=== PATIENT | female | born 1945 | race Caucasian/White ===

== ENCOUNTER 2024-06-21 20:02 | Inpatient (IN) ==
[2024-06-21] MEDS ORDERED: IOPAMIDOL 100 ML BOTTLE IV ONE (20:03)
[2024-06-21 21:04] LABS: Basophils # (Auto) 0.01 K/mcL (0.00-0.30); Basophils % (Auto) 0.2 % (0.0-2.0); Eosinophils # (Auto) 0 K/mcL (0.00-0.70); Eosinophils % (Auto) 0 % (0.0-7.0); Hematocrit 44.5 % (34.1-44.9); Hemoglobin 14.7 g/dL (11.2-15.7); Lymphocytes # (Auto) 0.27 K/mcL (1.50-4.80); Lymphocytes % (Auto) 5.7 % (15.5-49.0); Mean Cell Volume 96.3 fL (80.0-100.0); Mean Platelet Volume 9.9 fL (8.8-12.5); Monocytes # (Auto) 0.02 K/mcL (0.10-0.90); Monocytes % (Auto) 0.4 % (1.0-12.0); Neutrophils % (Auto) 92.9 % (38.0-78.0); Platelet Count 133 K/mcL (140-440); RBC 4.62 M/mcL (3.59-5.38); Red Cell Distribution Width 14.4 % (11.5-14.5); WBC 4.7 K/mcL (4.5-11.0)
[2024-06-21 21:05] LABS: INR 1.1 (0.9-1.1); Prothrombin Time 14.3 sec (11.9-14.5)
[2024-06-21 21:16] LABS: ALT/SGPT 31 U/L (<40); AST/SGOT 38 U/L (<32); Albumin 3.7 gm/dL (3.2-5.2); Albumin/Globulin Ratio 1.7 (1.0-2.3); Alkaline Phosphatase 93 U/L (39-117); Bilirubin,Total 0.6 mg/dL (0.1-1.0); Blood Urea Nitrogen 28 mg/dL (8-23); Calcium 8.9 mg/dL (8.6-10.4); Carbon Dioxide 20 mmol/L (22-30); Chloride 97 mmol/L (96-108); Globulin 2.2 gm/dL (2.2-3.7); Glomerular Filtration Rate 43; Glucose 165 mg/dL (70-105); Potassium 2.8 mmol/L (3.3-5.1); Sodium 135 mmol/L (133-145)
[2024-06-21] MEDS: cefTRIAXone 2 GM in DEXTROSE 5% IN WATER 50 ML IV ONE (21:35)
[2024-06-21] MEDS: NALOXONE HCL 0.4 MG/ML VIAL IV ONE (21:35)
[2024-06-21] MEDS: MAGNESIUM SULFATE 2 GM/50 ML BAG IV ONE (21:35)
[2024-06-21] MEDS: 0.9 % SODIUM CHLORIDE 1,780 ML IV ONE (21:35)
[2024-06-21] MEDS: POTASSIUM CHLORIDE 20 MEQ TABLET PO ONE (22:08)
[2024-06-21] MEDS: POTASSIUM CHLORIDE 20 MEQ in DEXTROSE 5% IN WATER 250 ML IV ONE (22:20)
[2024-06-21] MEDS: ACETAMINOPHEN 1,000 MG/100 ML BAG IV ONE (22:20)
[2024-06-21] MEDS: KETOROLAC 15 MG/ML VIAL IV ONE (22:50)
[2024-06-21] MEDS ORDERED: GLYCOPYRROLATE 0.2 MG/ML VIAL IV ONE (23:39)
[2024-06-21] MEDS ORDERED: LIDOCAINE 2% PF 5 ML VIAL ONE (23:39)
[2024-06-21] MEDS ORDERED: ONDANSETRON 4 MG/2 ML VIAL ONE (23:39)
[2024-06-21] MEDS ORDERED: KETAMINE 50 MG/ML Syringe IV ONE (23:39)
[2024-06-21] MEDS ORDERED: DEXAMETHASONE 10 MG/ML VIAL ONE (23:39)
[2024-06-21] MEDS ORDERED: METOCLOPRAMIDE 10 MG/2 ML VIAL ONE (23:39)
[2024-06-21] MEDS ORDERED: ePHEDrine 50 MG/5 ML SYRINGE (ANEST) IV ONE (23:39)
[2024-06-21] MEDS ORDERED: PHENYLephrine 1 MG/10 ML SYRINGE (ANEST) ONE (23:39)
[2024-06-21] MEDS ORDERED: PROPOFOL 200 MG/20 ML VIAL IV ONE (23:39)
[2024-06-21] MEDS ORDERED: FAMOTIDINE/PF 20 MG/2 ML VIAL IV ONE (23:40)
[2024-06-21 23:49] LABS: Band Neutrophils % 32 % (0-10); Lymphocytes % 4 % (15-49); Metamyelocytes % 1 %; Microcytosis 1+ (None Seen); Monocytes % (Manual) 1 % (1-12); Platelet Estimate DECREASED (Normal); RBC Morphology ABNORMAL (Normal); Reactive Lymphocytes 1 % (0-2); Segmented Neutrophils % 61 % (38-78)
[2024-06-21] MEDS: PIPERACILLIN SODIUM/TAZOBACTAM 3.375 GM in DEXTROSE 5% IN WATER 50 ML IV ONE (23:56)
[2024-06-22] MEDS: IOVERSOL 50 ML VIAL IV ONE (00:12)
[2024-06-22] MEDS: LIDOCAINE 2% URO-JET 10 ML JEL.PF.APP UR ONE (00:16)
[2024-06-22] MEDS ORDERED: PHENYLephrine 1 MG/10 ML SYRINGE (ANEST) ONE (00:29)
[2024-06-22] MEDS ORDERED: ePHEDrine 50 MG/5 ML SYRINGE (ANEST) IV ONE (00:29)
[2024-06-22] MEDS ORDERED: HYDROmorphone 0.5 MG/0.5 ML SYRINGE IV PRN (00:34)
[2024-06-22] MEDS ORDERED: NALOXONE HCL 0.4 MG/ML VIAL IV PRN (00:34)
[2024-06-22] MEDS ORDERED: fentaNYL 100 MCG/2 ML VIAL IV PRN (00:34)
[2024-06-22] MEDS ORDERED: ONDANSETRON 4 MG/2 ML VIAL IV PRN (00:34)
[2024-06-22] MEDS ORDERED: IPRATROPIUM/ALBUTEROL 3 ML AMPUL.NEB NEB PRN ×2 (00:34→01:07)
[2024-06-22] MEDS ORDERED: MAGNESIUM SULFATE 2 GM/50 ML BAG IV PRN (01:07)
[2024-06-22] MEDS ORDERED: POTASSIUM CHLORIDE 20 MEQ TABLET PO PRN ×2 (01:07)
[2024-06-22] MEDS ORDERED: POTASSIUM CHLORIDE 40 MEQ in DEXTROSE 5% IN WATER 500 ML IV PRN (01:07)
[2024-06-22] MEDS ORDERED: SENNOSIDES 1 TABLET PO PRN (01:07)
[2024-06-22] MEDS ORDERED: POLYETHYLENE GLYCOL 3350 17 GM PACKET PO PRN (01:07)
[2024-06-22] MEDS: PIPERACILLIN SODIUM/TAZOBACTAM 3.375 GM VIAL IV ONE (02:31)
[2024-06-22] MEDS: POTASSIUM CHLORIDE 20 MEQ in DEXTROSE 5% IN WATER 250 ML IV ONE (03:10)
[2024-06-22] MEDS: PIPERACILLIN SODIUM/TAZOBACTAM 3.375 GM in DEXTROSE 5% IN WATER 100 ML IV SCH ×2 (03:17→11:00)
[2024-06-22] MEDS: LACTATED RINGERS 1,000 ML IV SCH (03:24)
[2024-06-22] MEDS: POTASSIUM CHLORIDE 20 MEQ/10 ML VIAL IV ONE (03:29)
[2024-06-22] MEDS: NOREPINEPHRINE 250 ML IV ONE (03:47)
[2024-06-22 04:51] LABS: Appearance,Urine HAZY (Clear); Bilirubin,Urine Negative (Negative); Color,Urine YELLOW; Glucose,Urine (UA) Negative (Negative); Ketones,Urine Negative (Negative); Leukocyte Esterase,Urine 250 /uL (Negative); Mucus,Urine FEW /hpf; Nitrate,Urine Negative (Negative); Protein,Urine 100 mg/dL (Negative); Specific Gravity,Urine 1.038 (1.000-1.035); Urine Blood >=1.0 mg/dL (Negative); Urine RBC > 182 /hpf (0-1); Urine Squamous Epithelial Cell 1 /hpf (0-4); Urine WBC 64 /hpf (0-4); Urobilinogen,Urine Negative
[2024-06-22] MEDS: 0.9 % SODIUM CHLORIDE 250 ML IV SCH (05:15)
[2024-06-22] MEDS: NOREPINEPHRINE BITARTRATE 8 MG in 0.9 % SODIUM CHLORIDE 242 ML IV PRN (05:19)
[2024-06-22] MEDS: 0.9 % SODIUM CHLORIDE 10 ML SYRINGE IV SCH (05:36)
[2024-06-22 05:53] LABS: Hematocrit 41.4 % (34.1-44.9); Hemoglobin 13.5 g/dL (11.2-15.7); Mean Cell Volume 97.9 fL (80.0-100.0); Mean Corpuscular HGB Conc 32.6 g/dL (31.0-36.0); Mean Platelet Volume 10.5 fL (8.8-12.5); Platelet Count 134 K/mcL (140-440); RBC 4.23 M/mcL (3.59-5.38); Red Cell Distribution Width 14.8 % (11.5-14.5); WBC 22.6 K/mcL (4.5-11.0)
[2024-06-22 06:24] LABS: ALT/SGPT 32 U/L (<40); AST/SGOT 34 U/L (<32); Albumin 3.6 gm/dL (3.2-5.2); Albumin/Globulin Ratio 1.7 (1.0-2.3); Alkaline Phosphatase 60 U/L (39-117); Bilirubin,Direct 0.3 mg/dL (<0.3); Bilirubin,Total 0.5 mg/dL (0.1-1.0); Blood Urea Nitrogen 28 mg/dL (8-23); Calcium 8.6 mg/dL (8.6-10.4); Carbon Dioxide 20 mmol/L (22-30); Chloride 105 mmol/L (96-108); Globulin 2.1 gm/dL (2.2-3.7); Glomerular Filtration Rate 35; Glucose 237 mg/dL (70-105); Lactate Dehydrogenase 221 U/L (135-225); Phosphorous 3.2 mg/dL (2.5-4.5); Potassium 3.5 mmol/L (3.3-5.1); Sodium 141 mmol/L (133-145); Triglycerides 194 mg/dL (<150); Uric Acid 9.4 mg/dL (2.5-8.0)
[2024-06-22 06:56] LABS: Anisocytosis 1+ (None Seen); Band Neutrophils % 5 % (0-10); Lymphocytes % 4 % (15-49); Monocytes % (Manual) 6 % (1-12); Myelocytes % 2 %; Platelet Estimate NORMAL (Normal); RBC Morphology ABNORMAL (Normal); Segmented Neutrophils % 83 % (38-78)
[2024-06-22] MEDS ORDERED: NOREPINEPHRINE 250 ML IV PRN (07:36)
[2024-06-22] MEDS: 0.9 % SODIUM CHLORIDE 1,000 ML IV SCH ×2 (08:00→09:30)
[2024-06-22] MEDS: DOCUSATE SODIUM 100 MG CAPSULE PO SCH (08:00)
[2024-06-22] MEDS: ENOXAPARIN 40 MG/0.4 ML SYRINGE SQ SCH (08:09)
[2024-06-22] MEDS: FAMOTIDINE/PF 20 MG/2 ML VIAL IV SCH (08:09)
[2024-06-22] MEDS ORDERED: HYDROcodone/APAP (PP) 5/325MG TABLET (#4) PO PRN (08:44)
[2024-06-22] MEDS: SERTRALINE 100 MG TABLET PO SCH (10:10)
[2024-06-22] MEDS: ATORVASTATIN 20 MG TABLET PO SCH (10:11)
[2024-06-22] MEDS: MEMANTINE 10 MG TABLET PO SCH (10:11)
[2024-06-22] MEDS: LEVOTHYROXINE 125 MCG TABLET PO SCH (10:11)
[2024-06-22] MEDS: ACETAMINOPHEN 325 MG TABLET PO PRN (16:38)
[2024-06-22] MEDS: PRAZOSIN 1 MG CAPSULE PO SCH (20:28)
[2024-06-22] MEDS: morphine 4 MG/ML VIAL IV PRN (23:26)
[2024-06-23 05:10] LABS: Basophils # (Auto) 0.01 K/mcL (0.00-0.30); Basophils % (Auto) 0.1 % (0.0-2.0); Eosinophils # (Auto) 0.03 K/mcL (0.00-0.70); Eosinophils % (Auto) 0.2 % (0.0-7.0); Hematocrit 36.9 % (34.1-44.9); Hemoglobin 11.9 g/dL (11.2-15.7); Lymphocytes # (Auto) 1.62 K/mcL (1.50-4.80); Lymphocytes % (Auto) 9.1 % (15.5-49.0); Mean Cell Volume 99.5 fL (80.0-100.0); Mean Corpuscular HGB Conc 32.2 g/dL (31.0-36.0); Mean Platelet Volume 10.8 fL (8.8-12.5); Monocytes # (Auto) 0.71 K/mcL (0.10-0.90); Neutrophils % (Auto) 79.6 % (38.0-78.0); Platelet Count 113 K/mcL (140-440); RBC 3.71 M/mcL (3.59-5.38); Red Cell Distribution Width 14.9 % (11.5-14.5); WBC 17.9 K/mcL (4.5-11.0)
[2024-06-23 05:46] LABS: ALT/SGPT 27 U/L (<40); AST/SGOT 22 U/L (<32); Albumin 3.3 gm/dL (3.2-5.2); Albumin/Globulin Ratio 1.5 (1.0-2.3); Alkaline Phosphatase 57 U/L (39-117); Bilirubin,Direct 0.3 mg/dL (<0.3); Bilirubin,Total 0.6 mg/dL (0.1-1.0); Blood Urea Nitrogen 22 mg/dL (8-23); Calcium 8.3 mg/dL (8.6-10.4); Carbon Dioxide 22 mmol/L (22-30); Chloride 108 mmol/L (96-108); Globulin 2.2 gm/dL (2.2-3.7); Glomerular Filtration Rate 47; Glucose 126 mg/dL (70-105); Lactate Dehydrogenase 184 U/L (135-225); Phosphorous 2.3 mg/dL (2.5-4.5); Potassium 3.3 mmol/L (3.3-5.1); Sodium 143 mmol/L (133-145); Triglycerides 147 mg/dL (<150); Uric Acid 5.7 mg/dL (2.5-8.0)
[2024-06-23] MEDS: PANTOPRAZOLE 40 MG PACKET PO SCH (08:47)
[2024-06-23] MEDS: ONDANSETRON 4 MG/2 ML VIAL IV PRN (08:53)
[2024-06-23] MEDS: POTASSIUM PHOSPHATE 40 MEQ in 0.9 % SODIUM CHLORIDE 500 ML IV ONE (09:37)
[2024-06-23] MEDS: MELATONIN 3 MG TABLET PO PRN (19:39)
[2024-06-23] MEDS: HYDROcodone/APAP 5/325MG TABLET PO PRN (19:53)
[2024-06-24 06:35] LABS: Basophils # (Auto) 0.02 K/mcL (0.00-0.30); Basophils % (Auto) 0.1 % (0.0-2.0); Eosinophils # (Auto) 0.18 K/mcL (0.00-0.70); Eosinophils % (Auto) 1.3 % (0.0-7.0); Hematocrit 38.7 % (34.1-44.9); Hemoglobin 12.3 g/dL (11.2-15.7); Lymphocytes # (Auto) 1.89 K/mcL (1.50-4.80); Lymphocytes % (Auto) 13.6 % (15.5-49.0); Mean Cell Volume 100.5 fL (80.0-100.0); Mean Corpuscular HGB Conc 31.8 g/dL (31.0-36.0); Mean Platelet Volume 10.7 fL (8.8-12.5); Monocytes # (Auto) 0.51 K/mcL (0.10-0.90); Monocytes % (Auto) 3.7 % (1.0-12.0); Neutrophils % (Auto) 79.6 % (38.0-78.0); Platelet Count 127 K/mcL (140-440); RBC 3.85 M/mcL (3.59-5.38); Red Cell Distribution Width 15.2 % (11.5-14.5); WBC 13.9 K/mcL (4.5-11.0)
[2024-06-24 07:02] LABS: ALT/SGPT 24 U/L (<40); AST/SGOT 18 U/L (<32); Albumin 3.6 gm/dL (3.2-5.2); Albumin/Globulin Ratio 1.5 (1.0-2.3); Alkaline Phosphatase 61 U/L (39-117); Bilirubin,Direct 0.3 mg/dL (<0.3); Bilirubin,Total 0.7 mg/dL (0.1-1.0); Blood Urea Nitrogen 19 mg/dL (8-23); Calcium 8.5 mg/dL (8.6-10.4); Carbon Dioxide 24 mmol/L (22-30); Chloride 107 mmol/L (96-108); Globulin 2.4 gm/dL (2.2-3.7); Glomerular Filtration Rate 60; Glucose 129 mg/dL (70-105); Lactate Dehydrogenase 192 U/L (135-225); Phosphorous 2.1 mg/dL (2.5-4.5); Potassium 3.4 mmol/L (3.3-5.1); Sodium 143 mmol/L (133-145); Triglycerides 174 mg/dL (<150); Uric Acid 4.5 mg/dL (2.5-8.0)
[2024-06-24] MEDS: METOPROLOL SUCCINATE 25 MG TAB.XL.24H PO SCH (14:29)
[2024-06-24] MEDS: POTASSIUM PHOSPHATE 40 MEQ in 0.9 % SODIUM CHLORIDE 500 ML IV ONE (15:28)
[2024-06-24] MEDS: LEVOFLOXACIN 250 MG/50 ML BAG IV SCH (16:01)
[2024-06-24] MEDS: LEVOFLOXACIN 750 MG/150 ML BAG IV SCH (17:51)
[2024-06-24] MEDS: LEVOFLOXACIN 500 MG/100 ML BAG IV SCH (18:24)
[2024-06-24] MEDS: GABAPENTIN 300 MG CAPSULE PO ONE (18:26)
[2024-06-24] MEDS: GABAPENTIN 400 MG CAPSULE PO SCH (20:28)
[2024-06-24] MEDS ORDERED: PRAZOSIN 1 MG CAPSULE PO SCH (21:00)
[2024-06-24] MEDS ORDERED: TAMSULOSIN 0.4 MG CAPSULE PO SCH (21:00)
[2024-06-25 05:59] LABS: ALT/SGPT 21 U/L (<40); AST/SGOT 15 U/L (<32); Albumin 3.2 gm/dL (3.2-5.2); Albumin/Globulin Ratio 1.8 (1.0-2.3); Alkaline Phosphatase 61 U/L (39-117); Bilirubin,Direct 0.2 mg/dL (<0.3); Bilirubin,Total 0.5 mg/dL (0.1-1.0); Blood Urea Nitrogen 14 mg/dL (8-23); Calcium 7.6 mg/dL (8.6-10.4); Carbon Dioxide 23 mmol/L (22-30); Chloride 109 mmol/L (96-108); Globulin 1.8 gm/dL (2.2-3.7); Glomerular Filtration Rate 70; Glucose 107 mg/dL (70-105); Lactate Dehydrogenase 168 U/L (135-225); Phosphorous 2.9 mg/dL (2.5-4.5); Potassium 3.7 mmol/L (3.3-5.1); Sodium 143 mmol/L (133-145); Triglycerides 142 mg/dL (<150); Uric Acid 4.5 mg/dL (2.5-8.0)
[2024-06-25 06:13] LABS: Basophils # (Auto) 0.03 K/mcL (0.00-0.30); Basophils % (Auto) 0.3 % (0.0-2.0); Eosinophils # (Auto) 0.16 K/mcL (0.00-0.70); Eosinophils % (Auto) 1.7 % (0.0-7.0); Hemoglobin 11.6 g/dL (11.2-15.7); Lymphocytes # (Auto) 1.87 K/mcL (1.50-4.80); Lymphocytes % (Auto) 19.5 % (15.5-49.0); Mean Cell Volume 101.4 fL (80.0-100.0); Mean Corpuscular HGB Conc 31.4 g/dL (31.0-36.0); Mean Platelet Volume 10.7 fL (8.8-12.5); Monocytes % (Auto) 5.2 % (1.0-12.0); Platelet Count 125 K/mcL (140-440); RBC 3.65 M/mcL (3.59-5.38); WBC 9.6 K/mcL (4.5-11.0)
[2024-06-25] MEDS: CALCIUM GLUCONATE 9.3 MEQ in DEXTROSE 5% IN WATER 100 ML IV ONE (08:19)
[2024-06-25] MEDS: Mirabegron [Myrbetriq] 50 mg tablet extended release PO SCH (08:46)
[2024-06-25] MEDS: FISH OIL 1,000 MG CAPSULE PO SCH (09:07)
[2024-06-25] MEDS: GABAPENTIN 400 MG CAPSULE PO SCH ×2 (09:07→20:10)
[2024-06-25] MEDS: FAMOTIDINE 20 MG TABLET PO SCH (20:10)
[2024-06-26 07:07] LABS: Basophils # (Auto) 0.03 K/mcL (0.00-0.30); Basophils % (Auto) 0.4 % (0.0-2.0); Eosinophils # (Auto) 0.17 K/mcL (0.00-0.70); Eosinophils % (Auto) 2.2 % (0.0-7.0); Hematocrit 37.8 % (34.1-44.9); Hemoglobin 12.2 g/dL (11.2-15.7); Lymphocytes # (Auto) 2.26 K/mcL (1.50-4.80); Lymphocytes % (Auto) 29.4 % (15.5-49.0); Mean Cell Volume 98.4 fL (80.0-100.0); Mean Corpuscular HGB Conc 32.3 g/dL (31.0-36.0); Mean Platelet Volume 10.7 fL (8.8-12.5); Monocytes # (Auto) 0.61 K/mcL (0.10-0.90); Monocytes % (Auto) 7.9 % (1.0-12.0); Neutrophils % (Auto) 58.5 % (38.0-78.0); Platelet Count 135 K/mcL (140-440); RBC 3.84 M/mcL (3.59-5.38); Red Cell Distribution Width 14.7 % (11.5-14.5); WBC 7.7 K/mcL (4.5-11.0)
[2024-06-26 07:11] LABS: ALT/SGPT 17 U/L (<40); AST/SGOT 13 U/L (<32); Albumin 3.3 gm/dL (3.2-5.2); Albumin/Globulin Ratio 1.7 (1.0-2.3); Alkaline Phosphatase 68 U/L (39-117); Bilirubin,Direct 0.2 mg/dL (<0.3); Bilirubin,Total 0.4 mg/dL (0.1-1.0); Blood Urea Nitrogen 15 mg/dL (8-23); Calcium 8.5 mg/dL (8.6-10.4); Carbon Dioxide 23 mmol/L (22-30); Chloride 108 mmol/L (96-108); Globulin 1.9 gm/dL (2.2-3.7); Glomerular Filtration Rate 70; Glucose 110 mg/dL (70-105); Lactate Dehydrogenase 162 U/L (135-225); Phosphorous 3.3 mg/dL (2.5-4.5); Potassium 3.6 mmol/L (3.3-5.1); Sodium 144 mmol/L (133-145); Triglycerides 167 mg/dL (<150); Uric Acid 5.5 mg/dL (2.5-8.0)
[2024-06-26] MEDS: GABAPENTIN 400 MG CAPSULE PO SCH (08:09)
[2024-06-26] MEDS ORDERED: LEVOFLOXACIN 750 MG/150 ML BAG IV SCH (09:00)
[2024-06-26] MEDS: LEVOFLOXACIN 750 MG TABLET PO SCH (09:12)
[2024-06-26] MEDS: CALCIUM (OYSTER SHELL) 500 MG TABLET PO SCH (11:06)
[2024-06-26] MEDS: POTASSIUM CHLORIDE 10 MEQ TABLET PO SCH (11:06)
[2024-06-26] MEDS: CLOBETASOL 0.05% TOPICAL SCH (20:29)
[2024-06-26] MEDS: [UNRECOGNIZED DRUG - OTHER] BOTH EYES PRN (20:41)
[2024-06-27 06:06] LABS: Basophils # (Auto) 0.05 K/mcL (0.00-0.30); Basophils % (Auto) 0.7 % (0.0-2.0); Eosinophils # (Auto) 0.13 K/mcL (0.00-0.70); Eosinophils % (Auto) 1.9 % (0.0-7.0); Hematocrit 37.1 % (34.1-44.9); Lymphocytes # (Auto) 2.44 K/mcL (1.50-4.80); Lymphocytes % (Auto) 36.3 % (15.5-49.0); Mean Cell Volume 98.7 fL (80.0-100.0); Mean Corpuscular HGB Conc 32.3 g/dL (31.0-36.0); Mean Platelet Volume 10.2 fL (8.8-12.5); Monocytes # (Auto) 0.53 K/mcL (0.10-0.90); Monocytes % (Auto) 7.9 % (1.0-12.0); Neutrophils % (Auto) 50.7 % (38.0-78.0); Platelet Count 146 K/mcL (140-440); RBC 3.76 M/mcL (3.59-5.38); Red Cell Distribution Width 14.6 % (11.5-14.5); WBC 6.7 K/mcL (4.5-11.0)
[2024-06-27 06:43] LABS: ALT/SGPT 14 U/L (<40); AST/SGOT 12 U/L (<32); Albumin 3.3 gm/dL (3.2-5.2); Albumin/Globulin Ratio 1.7 (1.0-2.3); Alkaline Phosphatase 65 U/L (39-117); Bilirubin,Direct < 0.2 mg/dL (0-0.3); Bilirubin,Total 0.4 mg/dL (0.1-1.0); Blood Urea Nitrogen 17 mg/dL (8-23); Calcium 8.7 mg/dL (8.6-10.4); Carbon Dioxide 23 mmol/L (22-30); Chloride 106 mmol/L (96-108); Globulin 1.9 gm/dL (2.2-3.7); Glomerular Filtration Rate 70; Glucose 105 mg/dL (70-105); Lactate Dehydrogenase 153 U/L (135-225); Phosphorous 3.3 mg/dL (2.5-4.5); Potassium 3.6 mmol/L (3.3-5.1); Sodium 142 mmol/L (133-145); Triglycerides 210 mg/dL (<150); Uric Acid 6.1 mg/dL (2.5-8.0)
[2024-06-27] MEDS: HYDROCHLOROTHIAZIDE 25 MG TABLET PO SCH (08:41)
[2024-06-27] MEDS ORDERED: TURMERIC 1500 MG PO SCH (09:00)
[2024-06-27] MEDS: IBUPROFEN 600 MG TABLET PO PRN (10:11)
[2024-06-28] MEDS: hydrALAZINE 20 MG/ML VIAL IV PRN (12:04)
[2024-06-28] MEDS: KETOROLAC 15 MG/ML VIAL ONE ×2 (16:14)
[2024-06-29 06:04] LABS: Basophils # (Auto) 0.06 K/mcL (0.00-0.30); Eosinophils # (Auto) 0.17 K/mcL (0.00-0.70); Eosinophils % (Auto) 2.8 % (0.0-7.0); Hematocrit 38.1 % (34.1-44.9); Hemoglobin 12.3 g/dL (11.2-15.7); Lymphocytes # (Auto) 2.12 K/mcL (1.50-4.80); Lymphocytes % (Auto) 34.5 % (15.5-49.0); Mean Cell Volume 98.4 fL (80.0-100.0); Mean Corpuscular HGB Conc 32.3 g/dL (31.0-36.0); Mean Platelet Volume 9.7 fL (8.8-12.5); Monocytes # (Auto) 0.48 K/mcL (0.10-0.90); Monocytes % (Auto) 7.8 % (1.0-12.0); Neutrophils % (Auto) 51.1 % (38.0-78.0); Platelet Count 177 K/mcL (140-440); RBC 3.87 M/mcL (3.59-5.38); Red Cell Distribution Width 14.7 % (11.5-14.5); WBC 6.2 K/mcL (4.5-11.0)
[2024-06-29 06:34] LABS: ALT/SGPT 18 U/L (<40); AST/SGOT 20 U/L (<32); Albumin 3.5 gm/dL (3.2-5.2); Albumin/Globulin Ratio 1.8 (1.0-2.3); Alkaline Phosphatase 69 U/L (39-117); Bilirubin,Total 0.4 mg/dL (0.1-1.0); Blood Urea Nitrogen 23 mg/dL (8-23); Calcium 9.1 mg/dL (8.6-10.4); Carbon Dioxide 24 mmol/L (22-30); Chloride 104 mmol/L (96-108); Globulin 1.9 gm/dL (2.2-3.7); Glomerular Filtration Rate 60; Glucose 105 mg/dL (70-105); Potassium 3.2 mmol/L (3.3-5.1); Sodium 140 mmol/L (133-145)
[2024-06-29] MEDS: POTASSIUM CHLORIDE 10 MEQ TABLET PO SCH (09:47)
[2024-06-29] MEDS: KETOROLAC 30 MG/ML VIAL IV PRN (11:24)
[2024-06-30 05:54] LABS: Basophils # (Auto) 0.05 K/mcL (0.00-0.30); Basophils % (Auto) 0.6 % (0.0-2.0); Eosinophils # (Auto) 0.16 K/mcL (0.00-0.70); Eosinophils % (Auto) 2.1 % (0.0-7.0); Hematocrit 38.9 % (34.1-44.9); Hemoglobin 12.4 g/dL (11.2-15.7); Lymphocytes # (Auto) 2.54 K/mcL (1.50-4.80); Lymphocytes % (Auto) 32.9 % (15.5-49.0); Mean Cell Volume 99.7 fL (80.0-100.0); Mean Corpuscular HGB Conc 31.9 g/dL (31.0-36.0); Mean Platelet Volume 9.8 fL (8.8-12.5); Monocytes # (Auto) 0.49 K/mcL (0.10-0.90); Monocytes % (Auto) 6.3 % (1.0-12.0); Platelet Count 195 K/mcL (140-440); Red Cell Distribution Width 14.8 % (11.5-14.5); WBC 7.7 K/mcL (4.5-11.0)
[2024-06-30 06:17] LABS: ALT/SGPT 21 U/L (<40); AST/SGOT 21 U/L (<32); Albumin 3.6 gm/dL (3.2-5.2); Albumin/Globulin Ratio 1.8 (1.0-2.3); Alkaline Phosphatase 75 U/L (39-117); Bilirubin,Total 0.4 mg/dL (0.1-1.0); Blood Urea Nitrogen 28 mg/dL (8-23); Calcium 9.9 mg/dL (8.6-10.4); Carbon Dioxide 24 mmol/L (22-30); Chloride 104 mmol/L (96-108); Glomerular Filtration Rate 53; Glucose 97 mg/dL (70-105); Potassium 3.6 mmol/L (3.3-5.1); Sodium 140 mmol/L (133-145)
== END 2024-06-30 12:59 | DRG 871 ==
LOC: ED 20:02 → ICU 06-22 00:59
PROVIDERS: ADMIT Internal Medicine; ATTEND Internal Medicine